=== PATIENT | female | born 2000 | race Caucasian/White ===

== ENCOUNTER 2023-04-13 16:35 | Emergency (ER) | payer BC ==
[2023-04-13] MEDS ORDERED: Rabies Vaccine Human 2.5 UNITS VIAL IM ONE (17:30)
[2023-04-13] MEDS ORDERED: Rabies Immune Globulin/PF 300 UNITS/ML VIAL IM SCH (17:30)
== END 2023-04-13 18:23 | disposition home or self-care (01) ==
LOC: CSHERS 16:35
DX: S61.452A Open bite of left hand, initial encounter (principal); Z23 Encounter for immunization; W55.01XA Bitten by cat, initial encounter
CPT/HCPCS: 90375; 90471; 90675; 96372

== ENCOUNTER → 2023-04-16 | Day surgery (SDC) | payer BC ==
[~2023-04-16] MED LIST: Rabies Vaccine Human 2.5 UNITS VIAL IM ONE
== END ==
LOC: CSHERS 07:21
PROVIDERS: ATTEND Emergency Medicine Emergency Medical Services
DX: Z23 Encounter for immunization (principal)
CPT/HCPCS: 90675

== ENCOUNTER → 2023-04-20 | Day surgery (SDC) | payer BC | LOC: CSHER/OP 15:39 | PROVIDERS: ATTEND Pathology Anatomic Pathology & Clinical Pathology | DX: Z23 Encounter for immunization (principal) | CPT/HCPCS: 90675 ==